=== PATIENT | female | born 1955 | race Caucasian/White ===

== ENCOUNTER 2017-05-01 07:28 | Outpatient (CLI) | payer BC ==
--- NOTE | 2017-05-01 09:35 | ULT ---
ULTRASOUND ABDOMEN: Date: 05/01/17 HISTORY: Diarrhea, nausea, and weight loss. COMPARISON: None. ' FINDINGS: Visualized portions of the pancreas are unremarkable. Sonographic Bledsoe's sign is negative. Visualiz ed aorta and IVC are unremarkable. Hepatic echotexture is normal. Liver measures 14.6 cm in length. Main portal vein is patent with ante grade flow. Common bile duct measures 3.0 mm. The gallbladder wall thickness is 2.0 mm. Right kidney measures 9.8 x 3.3 x 4.0 cm, without mass, hydronephrosis, or abnormal calcifications. T he spleen measures 7.6 cm in length. Left kidney measures 9.0 x 5.6 x 5.3 cm. IMPRESSION: Unremarkable examination of the abdomen. POS: [facility]
== END 2017-05-01 07:29 | disposition home or self-care (01) ==
LOC: ULT 07:28
PROVIDERS: ATTEND Internal Medicine Gastroenterology
DX: R19.7 Diarrhea, unspecified (principal); R63.4 Abnormal weight loss; R11.0 Nausea
CPT/HCPCS: 76700